=== PATIENT | female | born 1945 | race Caucasian/White ===

== ENCOUNTER → 2017-07-03 | Outpatient (CLI) | payer MEDICARE, OTHER ==
[~2017-07-03] MED LIST: ASPIRIN LO-DOSE81 MG PO; FISH OIL1000 MG PO; IMODIUM2 MG PO; LEVOTHROID (S100 MCG PO; LOSARTAN-HCTZ1 EAC2 PO; PANTOPRAZOLE SO40 MG PO; VITAMIN D1000 UNIT PO
== END | disposition disaster alternative care site (69) ==
LOC: GRAD 14:30
DX: R06.00 Dyspnea, unspecified (principal); R79.89 Other specified abnormal findings of blood chemistry
CPT/HCPCS: Q9967